=== PATIENT | male | born 1965 | race Caucasian/White ===

== ENCOUNTER 2017-05-30 12:05 | Emergency (ER) | payer OTHER ==
[~2017-05-30] VITALS: Ht 190.5 cm; Wt 140.6 kg
[~2017-05-30 12:05] MED LIST: ANAPROX DS550 MG PO; ANUCORT-HC25 MG R; ANUSOL-HC25 MG RC; ASPIRIN ENTERIC81 M1 PO; AUGMENTIN 875 M1 TAB PO; B12100 MC1 PO; CLARITIN10 MG PO; DOXYCYCLINE MO100 MG PO; IBU800 M1 PO; MOTRIN800 MG PO; NKHM; PRILOSEC20 MG PO; ROBITUSSIN-AC 160 ML PO; VIBRAMYCIN100 MG PO; ZITHROMAX250 MG PO
[2017-05-30] MEDS ORDERED: NAPROSYN500 MG PO (12:46)
== END 2017-05-30 13:25 | disposition home or self-care (01) ==
LOC: ED 12:05
DX: S20.212A Contusion of left front wall of thorax, initial encounter (principal); R03.0 Elevated blood-pressure reading, without diagnosis of hypertension; W19.XXXA Unspecified fall, initial encounter; Y93.89 Activity, other specified; Y92.89 Other specified places as the place of occurrence of the external cause; Y99.9 Unspecified external cause status

== ENCOUNTER 2020-03-31 12:16 | Emergency (ER) | payer OTHER ==
[~2020-03-31] VITALS: Ht 182.8 cm; Wt 127.0 kg
[~2020-03-31 12:16] MED LIST changes: +NAPROSYN500 MG PO
[2020-03-31] MEDS ORDERED: NAPROXEN250 MG PO ×3 (12:35→16:21)
[2020-03-31] MEDS ORDERED: AUGMENTIN 875875 MG PO ×3 (12:35→16:21)
[2020-03-31] MEDS ORDERED: TYLENOL325 M1 PO ×3 (12:35→16:21)
== END 2020-03-31 12:50 | disposition home or self-care (01) ==
LOC: ED 12:16
DX: K04.7 Periapical abscess without sinus (principal); L03.213 Periorbital cellulitis; Z79.899 Other long term (current) drug therapy

== ENCOUNTER 2021-03-24 18:09 | Emergency (ER) | payer OTHER ==
[~2021-03-24] VITALS: Ht 190.5 cm; Wt 97.5 kg
[~2021-03-24 18:09] MED LIST changes: +AUGMENTIN 875875 MG PO; +NAPROXEN250 MG PO; +TYLENOL325 M1 PO
[2021-03-24] MEDS ORDERED: Motrin,Rufen800 MG PO (20:03)
== END 2021-03-24 20:16 | disposition home or self-care (01) ==
LOC: ED 18:09
DX: S46.912A Strain of unspecified muscle, fascia and tendon at shoulder and upper arm level, left arm, initial encounter (principal); W18.39XA Other fall on same level, initial encounter; Y93.89 Activity, other specified; Y92.89 Other specified places as the place of occurrence of the external cause; Y99.8 Other external cause status

== ENCOUNTER 2021-12-30 17:05 | Emergency (ER) | payer OTHER ==
[~2021-12-30] VITALS: Ht 182.8 cm; Wt 108.9 kg
[~2021-12-30 17:05] MED LIST changes: +Motrin,Rufen800 MG PO
[2021-12-30 18:46] LABS: BASO % 0.2 % (0.0-1.0); EOS % 0.2 % (1.0-4.0); HEMATOCRIT 43.6 % (42.0-52.0); LYMPH # 0.8 10*3/uL (1.3-4.4); LYMPH % 17.2 % (27.0-41.0); MEAN CORPUSCULAR HGB 28.7 pg (27.0-31.0); MEAN CORPUSCULAR HGB CONC 34.2 g/dl (33.0-37.0); MEAN PLATELET VOLUME 9.7 fl (9.6-12.3); MONO # 0.4 10*3/uL (0.1-1.0); MONO % 9.8 % (3.0-9.0); NEUT # 3.2 10*3/uL (2.3-7.9); NEUT % 71.9 % (47.0-73.0); PLATELET COUNT AUTOMATED 152 10*3/uL (130-400); RED BLOOD COUNT 5.19 10*6/uL (4.50-5.90); RED CELL DISTRI WIDTH 12.6 % (0-14.5); WHITE BLOOD COUNT 4.5 10*3/uL (4.8-10.8)
[2021-12-30 18:58] LABS: ACT PARTIAL THROMBO TIME 28.2 SECONDS (20.0-32.1); INTERNATIONAL NORM RATIO 1.1 (2.0-3.5)
[2021-12-30 19:02] LABS: ALKALINE PHOSPHATASE 71 U/L (45-117); BUN 15 mg/dl (7-24); CHLORIDE 106 mmol/L (98-107); CREATININE 1.14 mg/dL (0.70-1.30); LIPASE 82 U/L (73-393); POTASSIUM 3.5 mmol/L (3.5-5.1); SGPT/ALT 50 U/L (12-78); SODIUM 142 mmol/L (136-145)
== END 2021-12-30 19:27 | disposition home or self-care (01) ==
LOC: ED 17:05
PROVIDERS: Family Medicine
DX: R06.02 Shortness of breath (principal)